=== PATIENT | male | born 1970 | race African-American/Black ===

== ENCOUNTER 2023-01-09 11:33 | Outpatient (CLI) | payer BC, SELFPAY ==
--- NOTE | 2023-01-09 14:14 | ECG_ITS ---
Measurements Intervals [place] Rate: 63 P: 39 HI: 153 QRS: 56 QRSD: 94 T: 30 QT: 389 QTc: 399 Interpretive Statements SINUS RHYTHM NORMAL ELECTROCARDIOGRAM NO PREVIOUS ECG AVAILABLE FOR COMPARISON Electronically Signed On 01-10-2023 7:39:01 CDT by Thien Dejesus M.D.
[2023-01-09 14:40] LABS: Hematocrit 38.9 % (42.0-52.0); Hemoglobin 11.8 g/dL (14.0-18.0); Mean Corpuscular HGB Conc 30.3 g/dl (32-36); Mean Corpuscular Hemoglobin 23.1 pg (26-34); Mean Corpuscular Volume 76.1 fl (80-100); Mean Platelet Volume 9.2 fl (7.4-10.4); Platelet Count Result 209 k/mm3 (150-375); Red Blood Count 5.11 M/mm3 (4.6-6.20); Red Cell Distribution Width 16.3 % (11.5-14.5); White Blood Count 7.5 K/mm3 (4.5-10.0)
[2023-01-09 14:47] LABS: Appearance Urine Clear (Clear); Bacteria Urine None Seen /hpf; Bilirubin Urine Negative (Negative); Blood Urine Negative (Negative); Color Urine Yellow (Yellow); Glucose Urine UA Negative (Negative); Ketones Urine Negative (Negative); Leukocyte Esterase Ur Trace LEU/UL (Negative); Nitrate Urine Negative (Negative); Non Pathogenic Casts 0-2; Protein Urine Negative (Negative); RBC Urine 0-2 /hpf (0-2); Specific Grav Ur 1.022 (1.001-1.035); Squamous Epithelial Cell Urine None seen /hpf (Few); WBC Urine 0-5 /hpf; pH Urine 7.5 (5.0-9.0)
[2023-01-09 14:50] LABS: Anion Gap 4 mmol/L (8-16); Blood Urea Nitrogen 10 mg/dL (9-20); Calcium 9.6 mg/dL (8.4-10.2); Carbon Dioxide 27 mmol/L (22-30); Chloride 103 mmol/L (98-107); Estimated Glomerular Filt Rate > 60; Glucose 91 mg/dL (65-110); Potassium 4.2 mmol/L (3.4-5.0); Sodium 134 mmol/L (137-145)
[2023-01-09 14:51] LABS: INR 1.2; Partial Thromboplastin Time 28.5 SECONDS (22.3-36.8); Prothrombin Time 15.6 Seconds (11.1-14.7)
[2023-01-09 15:00] LABS: Add Urine Microscopic? YES
== END 2023-01-09 11:34 | disposition home or self-care (01) ==
PROVIDERS: PCP Family Medicine; Visit Provider Neurological Surgery
DX: M48.02 Spinal stenosis, cervical region (principal); I10 Essential (primary) hypertension
CPT/HCPCS: 36415; 80048; 81001; 85027; 85610; 85730; 86850; 86900; 86901; 93005

== ENCOUNTER 2023-02-02 00:30 | Day surgery (SDC) | payer OTHER, BC, SELFPAY ==
[2023-01-08 12:26] VITALS: BMI 25.8
--- NOTE | 2023-01-08 12:33 | PC.NURSE ---
Addendum entered by Darlin Gonzalez RN 01/29/23 15:36: PT TO ARRIVE AT 0600 ON 02/02/23 FOR SURGERY AT 0730. PT ALREADY STOPPED ASPIRIN AND WARFARIN (LAST DOSE WAS 01/28 PER PT). Original Note: Report to the Outpatient Waiting Room, entrance under the green pavilion located off [facility], at time 8:00 on date 01/11/23. Planned Procedure Time: 10:00. Time changes happen often and if your time is changed the preop area will call you the afternoon before. - You and your visitor will be asked to self-screen and do not enter if you have any COVID symptoms. - A mask is optional within the hospital at this time. Patients may have clear liquids (water, carbonated beverages, clear teas, apple juice) until 3 hours prior to surgery (7:00) with a maximum of 20 ounces. - No food from midnight until time of surgery Take the following medications with a SIP of water the morning of surgery: CARVEDILOL, TYLENOL #4 IF NEEDED DO NOT STOP ANY OF YOUR OTHER PRESCRIPTION MEDICATIONS PRIOR TO SURGERY ?EXCEPT THE FOLLOWING Medications to discontinue per physician: ASPIRIN, WARFARIN Date to take last dose: PT HAS ALREADY STOPPED Please no make-up, nail turkmen, hairspray, perfume, deodorant, or body powder the day of surgery. No jewelry (including any body piercings) or valuables the day of surgery, leave them at home. Please take a shower or bath the night before, or the morning of, surgery with an antibacterial soap. Wear comfortable, loose fitting clothing. - Jewelry must be removed prior to entering the operating room. Rings and piercings that are not removed may be cut off. - The hospital will not accept responsibility for valuables. - Please leave all valuables, including medications, at home the day of surgery. If you are going home after surgery, a licensed independent driver must drive you home. - NO public transportation without another adult if you receive anesthesia. - We recommend that an adult stay with you for 24 hours following discharge. - We also recommend that you do not drive, make important decision, drink alcoholic beverages, or take any drugs that were not prescribed by your health care provider for at least 24 hours after your discharge time. Follow any additional instructions given to you from your surgeon. If you or anyone in your household have experienced Covid symptoms in the past week, please notify your surgeon or the nurse liaison at the phone number below for possible testing. Telephone instructions given to BLAIRE KINNEY and asked if any additional questions and then verbalized understanding. Patient advised to call surgeon office or pre surgery nurse liaison [phone] if any additional questions.
--- NOTE | 2023-01-29 15:35 | PC.NURSE ---
Pt states no changes in medications or health history since initial interview. New pre-op instructions reviewed with pt. Pt denies further questions at this time.
--- NOTE | 2023-02-01 13:15 | P.PNAN_ITS ---
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,angelique dmitriy narrowing Patient Data Age: 52 Gender: M Height: 1.8 m Weight: 83.95 kg Allergies Allergy/AdvReac Type Severity Reaction Status Date / Time Penicillins Allergy Unknown Verified 02/02/23 06:44 Home Medications Medication Instructions Recorded Confirmed Type aspirin 81 mg tablet,delayed 81 mg PO DAILY 09/19/22 01/29/23 History release tamsulosin 0.4 mg capsule (Flomax) 0.8 mg PO DAILY 09/19/22 01/29/23 History warfarin 7.5 mg tablet 7.5 mg PO DAILY 09/19/22 01/29/23 History acetaminophen 300 mg-codeine 60 mg 1 tablet PO QID PRN Pain 01/08/23 01/29/23 History tablet carvedilol 12.5 mg tablet 12.5 mg PO BID 01/08/23 01/29/23 History lisinopril 2.5 mg tablet 2.5 mg PO DAILY 01/08/23 01/29/23 History Patient hx anesthesia problems: none Family hx anesthesia problems: none Results Review: All pre-operative results and documents have been reviewed as part of the pre-operative evaluation. [facility] Past Medical History Medical History (Updated 02/02/23 @ 07:12 by Fred Wheat DO) Anticoagulant long-term use Anxiety CAD (coronary artery disease) DVT (deep venous thrombosis) History of blood clots History of pulmonary embolism Hypertension Surgical History Surgical History (Updated 02/01/23 @ 13:17 by Fred Wheat DO) History of coronary artery stent placement x9 Family History Family History Father Malignant neoplasm of prostate Social History Social History (Updated 09/19/22 @ 17:06 by Monica Moreira MA) Smoking packs per day: 0.5 Smoking cigarettes per day: 10.0 Years smoked: 20 Smoking pack-years: 10.00 Smoking status: Current every day smoker Tobacco type: cigarettes Second hand tobacco smoke exposure: Yes Alcohol intake: current Alcohol use details: RARE Substance use: never Substance use type: does not use Currently Unemployed: No Living arrangements: with family 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 Gender identity (if verbalized by the patient): Male Sexual Orientation (if Verbalized by the Patient): Straight or Heterosexual Spiritual care concerns: No Agree to blood products: Yes Anes - Eval Final PreProcedure Day of Procedure 02/01/23 13:15 Patient weight: overweight Heart: regular rate and rhythm Lungs: clear to auscultation Airway: Mallampati scale class II Neurological: alert and oriented Last oral intake: >/= 8 hours ASA classification: III Emergent: no Anesthetic plan: proceed Anesthesia type and monitoring: general ETT and standard monitoring Results Review: All pre-operative results and documents have been reviewed as part of the pre- operative evaluation. Informed Consent: The patient's anesthetic plan and its attendant risks and benefits were discussed with the patient/family/POA. Questions were solicited and answers provided to the satisfaction of the patient/family/POA.
[2023-02-02] VITALS (21 sets, daily range): BP systolic 92–130; BP diastolic 57–81; PULSE 53–80; RESP 14–20; TEMP 35.8–36.8; O2SAT 94–100
--- NOTE | ~2023-02-02 | XR_ITS ---
XR fluoroscopy no charge 02/02/2023 10:54 Indication: Spinal stenosis. Anterior cervical discectomy and fusion at C4-C7 TECHNIQUE: Fluoroscopy used during Anterior cervical discectomy and fusion at C4-C7 performed by [Elias Barber MD] on 02/02/2023. 6 seconds of fluoroscopy with 2 images captured. FINDINGS: Correlate with procedure note. IMPRESSION: Fluoroscopy used during Anterior cervical discectomy and fusion at C4-C7. Please refer to procedural report. Reviewed, dictated and finalized at location B.
[2023-02-02] MEDS: LACTATED RINGERS 1,000 ML 30 ML IV CONT ×3 (07:11→11:38)
[2023-02-02 07:24] LABS: INR 1.1; Prothrombin Time 15.1 Seconds (11.1-14.7)
--- NOTE | 2023-02-02 07:39 | PM.IMHP ---
H&P: HPI History of Present Illness Date/Time: 02/02/23 07:39 Chief Complaint: Neck and arm pain Narrative: Mr. Hernandez is a 52-year-old gentleman with neck and arm pain related to spondylosis and foraminal stenosis in his cervical spine at C4 70 presents anterior cervical diskectomy and fusion. He has not changed appreciably since we last saw him. He does not have specific muscle group weakness but has occasional dermatomal numbness. He is not having bowel or bladder difficulty. Review of Systems Review of Systems: Patient denies shortness of breath, cough, fever, chills, nausea, vomiting, weight loss, weight gain, chest pain, dysuria. He has neck and arm pain as above. His review of systems is otherwise negative on 12 systems except as noted elsewhere. [facility] Past Medical History Medical History (Updated 02/02/23 @ 07:12 by Fred Wheat DO) Anticoagulant long-term use Anxiety CAD (coronary artery disease) DVT (deep venous thrombosis) History of blood clots History of pulmonary embolism Hypertension Surgical History Surgical History (Updated 02/01/23 @ 13:17 by Fred Wheat DO) History of coronary artery stent placement x9 Family History Family History Father Malignant neoplasm of prostate Social History Social History (Updated 09/19/22 @ 17:06 by Monica Moreira MA) Smoking packs per day: 0.5 Smoking cigarettes per day: 10.0 Years smoked: 20 Smoking pack-years: 10.00 Smoking status: Current every day smoker Tobacco type: cigarettes Second hand tobacco smoke exposure: Yes Alcohol intake: current Alcohol use details: RARE Substance use: never Substance use type: does not use Currently Unemployed: No Living arrangements: with family 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 Gender identity (if verbalized by the patient): Male Sexual Orientation (if Verbalized by the Patient): Straight or Heterosexual Spiritual care concerns: No Agree to blood products: Yes Meds Home Medications and Allergies Home Medications Medication Instructions Recorded Confirmed Type aspirin 81 mg tablet,delayed 81 mg PO DAILY 09/19/22 01/29/23 History release tamsulosin 0.4 mg capsule (Flomax) 0.8 mg PO DAILY 09/19/22 01/29/23 History warfarin 7.5 mg tablet 7.5 mg PO DAILY 09/19/22 01/29/23 History acetaminophen 300 mg-codeine 60 mg 1 tablet PO QID PRN Pain 01/08/23 01/29/23 History tablet carvedilol 12.5 mg tablet 12.5 mg PO BID 01/08/23 01/29/23 History lisinopril 2.5 mg tablet 2.5 mg PO DAILY 01/08/23 01/29/23 History Allergies Allergy/AdvReac Type Severity Reaction Status Date / Time Penicillins Allergy Unknown Verified 02/02/23 06:44 Vital Signs Vital Signs - 24 hr 02/02/23 07:29 Temperature 97.3 F L Pulse Rate 57 L Respiratory Rate 16 Blood Pressure 110/67 Pulse Oximetry 100 Oxygen Delivery Room Air Exam Narrative: Strength is 5/5 in all muscle groups of the bilateral lower extremities. Sensation is intact to light touch throughout the lower extremities. Breathing is nonlabored Regular rate and rhythm Assessment and Plan Assessment and plan (1) Foraminal stenosis of cervical region: Code(s): M48.02 - Spinal stenosis, cervical region Status: Acute (2) Cervical disc herniation: Code(s): M50.20 - Other cervical disc displacement, unspecified cervical region Status: Acute Plan Mr. Mustapha perez 52-year-old gentleman with neck and arm pain related to pathology at C4-7 is spine who presents for anterior cervical diskectomy and fusion at those levels. I described to him that operation, its risks, potential benefits, the operative and postoperative course in detail and answered all his questions personally. He indicates understanding and elects to proceed with that operation.
--- NOTE | 2023-02-02 07:43 | WPDHPUPDATE1 ---
History and Physical Update Update Date/Time: 02/02/23 07:43 History and Physical has been reviewed, including an updated exam of the patient. There are NO changes in the patient's condition. Risks, benefits, and alternatives have been discussed and questions answered. Patient agrees to proceed with procedure.
[2023-02-02] MEDS: ceFAZolin 2 GM/D5W 50 ML 2 GM/50 ML BAG IVPB (07:48)
[2023-02-02] MEDS: LIDO 1%/EPINEPHRINE 1:100,000 50 ML VIAL 10 ML INFILTRATE (08:30)
[2023-02-02] MEDS: fentaNYL CITRATE INJ (*CRX) 100 MCG/2 ML VIAL 25 MCG IV PUSH ×7 (11:12→12:16)
--- NOTE | 2023-02-02 13:23 | PC.NURSE ---
This patient, Norma Hernandez, was admitted to 2 Medical Room 241-. Patient/family oriented to hospital policies and general routines including ID bracelet, bed and alarms, visiting hours, pain management, procedures, bathroom and other care routines, personal items, smoking policy, room service/diet, and visiting hours. Information on how to activate the Rapid Response Team has been discussed. Patient/Family are encouraged to report perceived risks to care and to ask questions if they do not understand what they are told or what they should do.
[2023-02-02] MEDS: KCL 20 MEQ/D5/0.45% SOD CHL 1,000 ML 100 ML IV CONT ×2 (14:22→23:12)
[2023-02-02] MEDS: HYDROcodone/acetaminophen (*CRX) 10-325 MG TABLET 1 TAB PO ×2 (18:16→23:10)
[2023-02-02] MEDS: DOCUSATE SODIUM 100 MG CAPSULE PO (21:06)
[2023-02-02] MEDS: carvediloL 12.5 MG TABLET PO (21:06)
[2023-02-03 00:08] VITALS: BP 101/59; PULSE 60; RESP 18; TEMP 36.2; O2SAT 96
[2023-02-03] MEDS: HYDROcodone/acetaminophen (*CRX) 10-325 MG TABLET 1 TAB PO ×3 (03:09→12:40)
[2023-02-03 04:08] VITALS: BP 100/54; PULSE 63; RESP 18; TEMP 36.4; O2SAT 95
[2023-02-03 05:59] LABS: Potassium 4.1 mmol/L (3.4-5.0)
[2023-02-03 07:45] VITALS: BP 104/61; PULSE 66; RESP 12; TEMP 36.7; O2SAT 100
[2023-02-03 08:06] VITALS: BP 106/61; PULSE 64
[2023-02-03 08:08] VITALS: PULSE 64
[2023-02-03] MEDS: TAMSULOSIN HCL 0.4 MG CAPSULE 0.8 MG PO (08:08)
[2023-02-03] MEDS: carvediloL 12.5 MG TABLET PO (08:08)
[2023-02-03] MEDS: lisinopriL 2.5 MG TABLET PO (08:09)
[2023-02-03 11:45] VITALS: BP 104/62; PULSE 62; RESP 16; TEMP 36.2; O2SAT 100
--- NOTE | 2023-02-26 16:04 | W.PM.PROC2 ---
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 The of operation on the right side of the neck was examined, marked for incision, prepped and draped in routine sterile fashion. Incision was marked from the midline over the medial aspect of the sternocleidomastoid muscle and curvilinear transverse fashion 3 fingerbreadths above the sternal notch. This area was injected with 0.5% lidocaine with [id number] epinephrine. Intravenous antibiotics given prior to incision. Incision was made with a 10 blade scalpel down to the platysma muscle. The skin was undermined and the platysma muscle was divided longitudinally with its fibers using Metzenbaum scissors. A plane was then dissected medial to the sternocleidomastoid muscle down to the anterior aspect of the spine using the finger and Metzenbaum scissors. A verifying x-rays obtained to verify the level of operation. The longus colli muscle was dissected free of the anterior aspect of the spine using Bovie cautery. A Shadow Line retractor system was placed. Scottie pins were placed Um over each disc space and distraction placed over the disc space and diskectomy and arthrodesis procedures performed identically at each level. This was done by entering the disc space by cutting along the margin of the bone above and below. This was done with a 15 blade scalpel. Curved curette pituitary rongeur were used to remove as much cartilaginous endplate and disc material as possible down to the annulus and ligament posteriorly. A Midas Marcel drill was used to bur down the endplates to bleeding cortical flat surfaces as well as to begin a bony foraminotomy bilaterally. Under microscopy the annulus and ligament were interrupted using a curved curette. A 2. Kerrison punch was used to remove annulus, ligament and posterior osteophyte and to complete a bony foraminotomy bilaterally. This was done until a nerve hook could be placed out each foramen to confirm lack of compression. The disc spaces were then sized an appropriately sized interbody devices were chosen and filled with a mixture of local autograft bone and I factor. These were then tamped into the interspace to 1-2 mm countersink. The Tichnor pins were removed. An anterior cervical plate was chosen, placed in position and secured using 814 x 4 mm anterior screws advance into the locking mechanism of the plate to hand tightness. The locking mechanism was then engaged at each screw. A verifying x-rays obtained to verify good position of the instrumentation which was confirmed. The wound was then copiously irrigated with bacitracin irrigation all bleeding stopped with bipolar and Bovie cautery and Gelfoam thrombin powder. The wound was then closed in layered fashion with 3-0 Vicryl interrupted sutures in the platysma muscle and in the dermis. The skin was closed with a running 4-0 Monocryl subcuticular stitch and dressed with Dermabond. The patient was then allowed to wake up in the operating room and was taken to the recovery room in stable condition. There were no immediate complications of this operation. All counts were reported correct in the case. Blood loss was 50 cc. The patient was neurologically at his baseline postoperatively. Estimated Blood Loss 50 IV Fluids 1,000 Urine Output 450 Complications None Condition Stable Disposition PACU [facility] Billing Surgery - Charge Forward: Surgery Billing
== END 2023-02-03 16:35 | disposition home or self-care (01) ==
LOC: ANHSURGERY 06:22 → ANH2MED 13:11
PROVIDERS: PCP Family Medicine; Visit Provider Neurological Surgery
PROC: 0RB30ZZ Excision of Cervical Vertebral Disc, Open Approach (ICD-10-PCS; CPT 22551; principal; 2023-02-02 07:30)
DX: M50.20 Other cervical disc displacement, unspecified cervical region (principal); M48.02 Spinal stenosis, cervical region; I25.10 Atherosclerotic heart disease of native coronary artery without angina pectoris; I10 Essential (primary) hypertension; F41.9 Anxiety disorder, unspecified; Z86.718 Personal history of other venous thrombosis and embolism; Z86.711 Personal history of pulmonary embolism; Z95.5 Presence of coronary angioplasty implant and graft; F17.210 Nicotine dependence, cigarettes, uncomplicated; Z79.82 Long term (current) use of aspirin; Z79.01 Long term (current) use of anticoagulants
CPT/HCPCS: 22551; 22552 ×2; 22853 ×3; 20936; 36415; 84132; 85610; 85730; 86850; 86900; 86901; 97116; 97161; 97165; 97530; 97535; 99199; A9270; C1713; J0690; J1100; J2250; J2405; J2704; J3010; J3480; J7120